=== PATIENT | female | born 2000 | race American Indian/Alaskan Native ===

== ENCOUNTER 2024-02-25 20:23 | Inpatient (IN) | payer MEDICAID, OTHER ==
[2024-02-25 20:43] LABS: BASOPHILS ABSOLUTE AUTO 0.05 K/uL (0.00-0.10); BASOPHILS PERCENT AUTO 0.4 % (0.1-1.3); EOSINOPHILS ABSOLUTE AUTO 0.22 K/uL (0.00-0.40); EOSINOPHILS PERCENT AUTO 1.6 % (0.0-5.4); HEMATOCRIT 47.1 % (34.3-46.0); HEMOGLOBIN 16.3 g/dL (11.2-15.5); IMMATURE GRAN ABSOLUTE AUTO 0.07 K/uL (0.00-0.23); IMMATURE GRAN PERCENT AUTO 0.5 % (0.0-0.7); LYMPHOCYTES ABSOLUTE AUTO 1.11 K/uL (0.8-3.3); LYMPHOCYTES PERCENT AUTO 8.3 % (11.4-47.7); MEAN CORPUSCULAR HGB CONC 34.6 g/dL (31.6-35.5); MEAN CORPUSCULAR VOLUME 86.7 fL (81.4-99.0); MONOCYTES ABSOLUTE AUTO 0.86 K/uL (0.20-0.90); MONOCYTES PERCENT AUTO 6.4 % (3.3-12.6); NEUTROPHILS ABSOLUTE AUTO 11.11 K/uL (1.0-7.6); NEUTROPHILS PERCENT AUTO 82.8 % (40.0-78.1); PLATELET COUNT,PLT 310 K/uL (130-375); RED BLOOD CELL COUNT 5.43 M/uL (3.77-5.24); WHITE BLOOD CELL COUNT,WBC 13.4 K/uL (3.2-11.0)
[2024-02-25 21:04] LABS: A/G RATIO 0.8 (1.2-2.2); ALANINE AMINOTRANSFERASE,ALT 303 U/L (12-78); ALBUMIN 3.7 g/dL (3.4-5.0); ALKALINE PHOSPHATASE 123 U/L (46-116); ANION GAP 20.4 mmol/L (5.0-14.0); ASPARTATE AMNIOTRANSFERASE,AST 514 U/L (15-37); BILIRUBIN TOTAL 0.3 mg/dL (0.2-1.0); BLOOD UREA NITROGEN,BUN 9 mg/dL (7-18); CALCIUM 8.9 mg/dL (8.5-10.1); CARBON DIOXIDE,CO2 18 mmol/L (21-32); CHLORIDE,CL 104 mmol/L (100-108); ESTIMATED GFR 81 mL/min (>60); GLUCOSE RANDOM 397 mg/dL (74-106); POTASSIUM,K 3.4 mmol/L (3.6-5.2); PROTEIN TOTAL,TP 8.5 g/dL (6.4-8.2); SODIUM,NA 139 mmol/L (140-148)
[2024-02-25 21:44] LABS: APPEARANCE,URINE CLEAR (CLEAR); BILIRUBIN,URINE NEGATIVE (NEGATIVE); COLOR,URINE YELLOW (YELLOW); GLUCOSE,URINE 500 mg/dL (NEGATIVE); KETONES,URINE TRACE mg/dL (NEGATIVE); LEUKOCYTE ESTERASE,URINE NEGATIVE (NEGATIVE); NITRITE,URINE NEGATIVE (NEGATIVE); OCCULT BLOOD,URINE MODERATE (NEGATIVE); PH,URINE 6.5 (5.0-8.0); PROTEIN,URINE 100 mg/dL (NEGATIVE); UROBILINOGEN,URINE 0.2 EU/dL (0.2-1.0)
[2024-02-25 21:53] LABS: AMPHETAMINES SCREEN, URINE NEGATIVE (NEGATIVE); BARBITURATE SCREEN,URINE NEGATIVE (NEGATIVE); BENZODIAZEPINES SCREEN,URINE NEGATIVE (NEGATIVE); METHADONE SCREEN, URINE NEGATIVE (NEGATIVE); METHAMPHETAMINES SCREEN, URINE NEGATIVE (NEGATIVE); OXYCODONE SCREEN,URINE NEGATIVE (NEGATIVE); PROPOXYPHENE SCREEN,URINE NEGATIVE (NEGATIVE)
[2024-02-25 21:54] LABS: AMORPHOUS SEDIMENT,URINE NOT SEEN; BACTERIA,URINE RARE; EPITHELIAL CELLS,URINE FEW; MUCUS,URINE FEW; THC SCREEN,URINE 50 NG/ML PRESUMPTIVE POSITIVE (NEGATIVE); WBC,URINE 0-5 (0-5)
[2024-02-25] MEDS: HYDROmorphone 0.5 MG/0.5 ML Syringe IVPUSH ONE (21:55)
[2024-02-25] MEDS: Ondansetron 4 MG/2 ML SDV IVPUSH ONE (22:47)
[2024-02-26] MEDS: Sodium Chloride 0.9% 1,000 ML IV SCH ×2 (00:19→02:31)
[2024-02-26] MEDS ORDERED: Docusate Sodium 100 MG Cap PO PRN (01:20)
[2024-02-26] MEDS ORDERED: Ondansetron 4 MG Tab.DIS PO PRN (01:20)
[2024-02-26] MEDS ORDERED: Naloxone 0.4 MG/ML SDV IVPUSH PRN (01:20)
[2024-02-26] MEDS ORDERED: Bisacodyl 5 MG Tab PO PRN (01:20)
[2024-02-26] MEDS ORDERED: Nicotine Polacrilex 2 MG Gum CHEW PRN (01:54)
[2024-02-26] MEDS: oxyCODONE 5 MG Tab PO PRN (02:31)
[2024-02-26] MEDS: Potassium Chloride 20 MEQ Tab.ER PO ONE (02:31)
[2024-02-26] MEDS: Acetaminophen 325 MG Tab PO PRN (02:31)
[2024-02-26] MEDS: Morphine 2 MG/ML SYRINGE IVPUSH PRN (05:50)
[2024-02-26 06:34] LABS: BASOPHILS ABSOLUTE AUTO 0.05 K/uL (0.00-0.10); BASOPHILS PERCENT AUTO 0.4 % (0.1-1.3); EOSINOPHILS ABSOLUTE AUTO 0.19 K/uL (0.00-0.40); EOSINOPHILS PERCENT AUTO 1.4 % (0.0-5.4); IMMATURE GRAN ABSOLUTE AUTO 0.07 K/uL (0.00-0.23); IMMATURE GRAN PERCENT AUTO 0.5 % (0.0-0.7); LYMPHOCYTES ABSOLUTE AUTO 2.31 K/uL (0.8-3.3); LYMPHOCYTES PERCENT AUTO 16.8 % (11.4-47.7); MEAN CORPUSCULAR HEMOGLOBIN 30.4 pg (31.6-35.5); MEAN CORPUSCULAR VOLUME 86.8 fL (81.4-99.0); MONOCYTES ABSOLUTE AUTO 0.93 K/uL (0.20-0.90); MONOCYTES PERCENT AUTO 6.8 % (3.3-12.6); NEUTROPHILS ABSOLUTE AUTO 10.18 K/uL (1.0-7.6); NEUTROPHILS PERCENT AUTO 74.1 % (40.0-78.1); PLATELET COUNT,PLT 250 K/uL (130-375); RED BLOOD CELL COUNT 4.61 M/uL (3.77-5.24); WHITE BLOOD CELL COUNT,WBC 13.7 K/uL (3.2-11.0)
[2024-02-26 06:49] LABS: A/G RATIO 0.7 (1.2-2.2); ALBUMIN 3.2 g/dL (3.4-5.0); ANION GAP 10.4 mmol/L (5.0-14.0); BILIRUBIN DIRECT 0.18 mg/dL (0.0-0.2); BILIRUBIN INDIRECT 0.72; BILIRUBIN TOTAL 0.9 mg/dL (0.2-1.0); CALCIUM 8.3 mg/dL (8.5-10.1); CREATININE 0.7 mg/dL (0.6-1.0); EST CRCL DRUG DOSING (CG) 139.7 mL/min; POTASSIUM,K 3.8 mmol/L (3.6-5.2); PROTEIN TOTAL,TP 7.5 g/dL (6.4-8.2)
[2024-02-26] MEDS: Insulin Lispro 100 Unit/ML 3 ML KwikPen SUBCUT SCH (07:37)
[2024-02-26] MEDS: Nicotine 7 MG/24 Hr Patch TRDERM SCH (08:29)
[2024-02-26] MEDS: Pantoprazole 40 MG Vial IVPUSH SCH (08:29)
== END 2024-02-26 15:00 | disposition home or self-care (01) | DRG 563 ==
LOC: JP.ED 20:23 → JP.MS 02-26 00:45
PROVIDERS: ADMIT Internal Medicine; ATTEND Physician Assistant
DX: S82.254A Nondisplaced comminuted fracture of shaft of right tibia, initial encounter for closed fracture (principal); E11.9 Type 2 diabetes mellitus without complications; F10.10 Alcohol abuse, uncomplicated; F17.210 Nicotine dependence, cigarettes, uncomplicated; Z79.84 Long term (current) use of oral hypoglycemic drugs; Z79.899 Other long term (current) drug therapy; V49.9XXA Car occupant (driver) (passenger) injured in unspecified traffic accident, initial encounter
CPT/HCPCS: 36415; 73562-26-RT; 73562-RT; 73590-26-RT; 73590-RT; 73700-RT; 76377; 80048; 80053; 80076; 80305-QW; 80307; 81001; 81025; 82800; 82947; 83690; 85025; 96374; 96375; 97161-GP; 99222; 99238; 99284; 99285-25; A9270-GY; J1170; J1815; J2270; J2405; J2470; J7030

== ENCOUNTER 2024-02-28 10:11 | Day surgery (SDC) | payer MEDICAID, OTHER ==
[2024-02-28] MEDS: Nozin Nasal Sanitizer NASBOTH SCH ×2 (11:30→20:26)
[2024-02-28] MEDS: Lactated Ringers 1,000 ML IV SCH (11:31)
[2024-02-28] MEDS ORDERED: fentaNYL 100 MCG/2 ML SDV ONE (11:36)
[2024-02-28] MEDS ORDERED: Propofol 200 MG/20 ML SDV ONE ×4 (11:36→16:12)
[2024-02-28] MEDS ORDERED: Midazolam 1 MG/ML 2 ML SDV ONE ×2 (11:36→15:16)
[2024-02-28] MEDS ORDERED: Docusate Sodium 100 MG Cap PO PRN (12:30)
[2024-02-28] MEDS ORDERED: Magnesium Hydroxide 400 MG/5 ML Susp 30 ML Cup PO PRN (12:30)
[2024-02-28] MEDS ORDERED: oxyCODONE 5 MG Tab PO PRN (12:34)
[2024-02-28] MEDS: ceFAZolin 2 GM in Premix Bag 1 BAG IV ONE (15:42)
[2024-02-28] MEDS: Bupivacaine 0.5% 50 ML MDV ONE (15:50)
[2024-02-28] MEDS: Sodium Chloride 0.9% 1,000 ML IV SCH (17:46)
[2024-02-28] MEDS: Morphine 2 MG/ML SYRINGE IVPUSH PRN (18:05)
[2024-02-28] MEDS: Ketorolac 15 MG/ML SDV IVPUSH PRN (18:07)
[2024-02-28] MEDS: oxyCODONE 5 MG Tab PO PRN (19:15)
[2024-02-28] MEDS: Acetaminophen 325 MG Tab PO SCH (20:26)
[2024-02-28] MEDS: ceFAZolin 2 GM in Premix Bag 1 BAG IV SCH (21:41)
[2024-02-29] MEDS ORDERED: oxyCODONE 5 MG Tab PO PRN (00:03)
[2024-02-29] MEDS: oxyCODONE 5 MG Tab PO PRN (00:17)
[2024-02-29] MEDS: Ondansetron 4 MG/2 ML SDV IVPUSH PRN (08:41)
[2024-02-29] MEDS: Aspirin 325 MG Tab.EC PO SCH (08:46)
[2024-02-29] MEDS: metFORMIN 500 MG Tab PO SCH (08:46)
== END 2024-02-29 12:15 | disposition home or self-care (01) ==
LOC: JP.SDS 10:11 → JP.MS 12:30 → JP.SDS 02-29 12:15
PROVIDERS: ATTEND Specialist
DX: S82.122A Displaced fracture of lateral condyle of left tibia, initial encounter for closed fracture (principal); E11.9 Type 2 diabetes mellitus without complications; E66.9 Obesity, unspecified; X58.XXXA Exposure to other specified factors, initial encounter
CPT/HCPCS: 27535; 76000; 81025; 82947; 97110; 97161; A9270; C1713; J0665; J0690; J1885; J2250; J2270; J2405; J2704; J3010; J7030; J7120; 01392-QZ